=== PATIENT | male | born 1980 | race Caucasian/White ===

== ENCOUNTER → 2016-11-15 | Outpatient (CLI) | payer MEDICARE, OTHER ==
[~2016-11-15] VITALS: Ht 182.9 cm; Wt 102.3 kg
[~2016-11-15] MED LIST: AMBIEN 5MG TABLE5 MG PO; APRESOLINE 25MG25 MG PO; ATARAX 25MG25 MG/TAB PO; MELAT3MGTAB; PRILOSEC 20MG20 MG PO; ZOLOFT 100MG100 MG PO
== END ==
LOC: COL.RAD 12:47 → EDSEX 12:47 → COL.RAD 13:00
DX: R74.8 Abnormal levels of other serum enzymes (principal); K76.0 Fatty (change of) liver, not elsewhere classified; R19.7 Diarrhea, unspecified; R10.84 Generalized abdominal pain

== ENCOUNTER → 2016-11-22 | Outpatient (CLI) | payer MEDICARE, OTHER ==
[2016-11-22] VITALS (11 sets, daily range): BP systolic 107–131; BP diastolic 57–84; PULSE 58–79
[~2016-11-22] VITALS: Ht 182.9 cm; Wt 100.5 kg
[2016-11-22 10:19] LABS: INR 1.2 (0.8-3.0); PROTHROMBIN TIME 12.8 SECONDS (9.7-12.8)
== END ==
LOC: EDSEX 09:35 → COL.RAD 09:35
PROVIDERS: Physician Assistant
DX: K75.81 Nonalcoholic steatohepatitis (NASH) (principal); K44.9 Diaphragmatic hernia without obstruction or gangrene; R74.8 Abnormal levels of other serum enzymes
CPT/HCPCS: 25757

== ENCOUNTER → 2020-03-07 | Outpatient (CLI) | payer MEDICARE, OTHER | LOC: MHCPAIN 10:17 | DX: M47.812 Spondylosis without myelopathy or radiculopathy, cervical region (principal); M54.2 Cervicalgia; M54.81 Occipital neuralgia; G89.29 Other chronic pain | CPT/HCPCS: G0463 ==

== ENCOUNTER → 2020-12-11 | Outpatient (CLI) | payer MEDICARE, OTHER ==
[~2020-12-11] MED LIST changes: +IMITREX100 MG PO; +MAG-OX 400400 MG/TAB PO; +NORCO 325 MG-51 TAB PO; +RIBOFLAVIN100 MG PO; +SEROQUEL XR300 MG PO; +TOPROL XL 50MG50 MG PO; +VITAMIN D31000 I1 PO
== END ==
LOC: COL.RAD 09:50
DX: K21.9 Gastro-esophageal reflux disease without esophagitis (principal); K44.9 Diaphragmatic hernia without obstruction or gangrene
CPT/HCPCS: A9537

== ENCOUNTER 2021-02-02 10:23 | Day surgery (SDC) | payer MEDICARE, OTHER ==
[~2021-02-02] VITALS: Ht 188 cm; Wt 106.0 kg
[2021-02-02] VITALS (10 sets, daily range): BP systolic 104–145; BP diastolic 67–86; PULSE 69–105; TEMP 97.7–98.2
[~2021-02-02 10:23] MED LIST changes: -IMITREX100 MG PO; -MAG-OX 400400 MG/TAB PO; -NORCO 325 MG-51 TAB PO; -RIBOFLAVIN100 MG PO; -SEROQUEL XR300 MG PO; -TOPROL XL 50MG50 MG PO; -VITAMIN D31000 I1 PO
[2021-02-02] MEDS ORDERED: RIBOFLAVIN100 MG PO (11:31)
[2021-02-02] MEDS ORDERED: TOPROL XL 50MG50 MG PO (11:31)
[2021-02-02] MEDS ORDERED: VITAMIN D31000 I1 PO (11:32)
[2021-02-02] MEDS ORDERED: MAG-OX 400400 MG/TAB PO (11:32)
[2021-02-02] MEDS ORDERED: IMITREX100 MG PO (11:33)
[2021-02-02] MEDS ORDERED: SEROQUEL XR300 MG PO (11:33)
--- NOTE | 2021-02-02 17:48 | NUR ---
Pt just arrived to the floor from [facility]. He is alert and oriented and having pain complaints to his abd. He is wimpering and grimacing. Pain medication recently given to him just prior to coming up from [facility]. Pts is present in the room. Bandaids x7 to abd are all CDI. Oriented them to the room and educated on room service.
--- NOTE | 2021-02-02 19:10 | NUR ---
PT GIVEN OXYCODONE 5MG PO FOR ABD PAIN.
--- NOTE | 2021-02-02 22:00 | NUR ---
DR CERVANTES NOTIFIED OF INEFFECTIVE PAIN CONTROL, NEW ORDERS RECEIVED.
--- NOTE | 2021-02-02 22:31 | NUR ---
PT GIVEN IV DILAUDID 0.25MG IVP FOR BACK AND ABD PAIN. HAS NOT PASSED GAS. ENCOURAGED AMBULATION. VOIDING WITHOUT DIFFICULTY. DENIES NAUSEA. ROBOTIC SITES X7, UPPER STAB WITH DRAINAGE, NEW BANDAID PLACED.
--- NOTE | 2021-02-02 23:12 | NUR ---
MEDICATED WITH SCHEDULED ES TYLENOL AND OXYCODONE 10MG PO FOR CONTINUED BACK AND ABD PAIN.
--- NOTE | 2021-02-03 00:49 | NUR ---
PT WALKING IN HALLWAYS, REPORTS FEELING BLOATED AND FULL, UNABLE TO PASS GAS.
[2021-02-03 03:21] VITALS: BP 135/67; PULSE 86; TEMP 98
--- NOTE | 2021-02-03 06:05 | NUR ---
PT AWAKE, REPORTS PASSING GAS. TAKES SCHEDULED AM MEDS WITHOUT PROBLEM.
--- NOTE | 2021-02-03 07:02 | NUR ---
Pt doing well this morning. He stated that he started the night with quite a bit of pain, but over all just feels a little sore. Reports that he has been up walking in the halls and feels good. No needs at this time, looking at menu to order breakfast.
[2021-02-03 08:00] VITALS: BP 135/87; PULSE 78; TEMP 98.1
--- NOTE | 2021-02-03 08:02 | NUR ---
Pt continues to do well, tolerating breakfast with no N/V. Rating pain 3/10 and reports overall feeling good. No needs verbalized, call light within reach
[2021-02-03 12:00] VITALS: BP 114/69; PULSE 75; TEMP 98.1
[2021-02-03] MEDS ORDERED: NORCO 325 MG-51 TAB PO (12:38)
--- NOTE | 2021-02-03 14:16 | NUR ---
Pt continued to do well throughout the day. He walked in the halls several times, pain well managed with schedule tylenol. Dr Ambriz in to see patient, discharge orders wrote. Reviewed discharge orders with pt and his . All questions answered, pt escorted out
--- NOTE | 2021-02-03 15:56 | NUR ---
Plans to DC to [place] wih Spouse Leah. SW met with patient and in room about DC plan. Patient rpoerts that his mother in-law Gonzales is the secondary contact . Patient reports that his PCP is Dr. Neely in [place] and also has a PCP at the [facility] in [place] but can not remember who the PCP is on the team as it just switched. Patient reports that he prefers [facility] for medications. Has transportation home and denies having any DME use or concerns about care. NF>
== END 2021-02-03 14:18 | disposition home or self-care (01) ==
LOC: SDCO 10:23 → SURG 17:45 → SDCO 02-03 14:18
DX: K44.9 Diaphragmatic hernia without obstruction or gangrene (principal); K81.1 Chronic cholecystitis; K21.9 Gastro-esophageal reflux disease without esophagitis; K82.8 Other specified diseases of gallbladder; R73.03 Prediabetes; G89.29 Other chronic pain; M25.519 Pain in unspecified shoulder; F43.10 Post-traumatic stress disorder, unspecified; F20.9 Schizophrenia, unspecified; F41.9 Anxiety disorder, unspecified; F32.9 Major depressive disorder, single episode, unspecified; Z79.899 Other long term (current) drug therapy
CPT/HCPCS: OP; A9284; C1781; J0330; J0690; J1100; J1170; J1885; J2405; J2704; J3010; J7120